=== PATIENT | female | born 1980 | race Caucasian/White ===

== ENCOUNTER 2020-04-26 15:56 | Emergency (ER) | payer OTHER ==
[~2020-04-26] VITALS: Ht 182.9 cm; Wt 68.0 kg
--- NOTE | 2020-04-26 17:12 | NUR ---
attendant honor bar: pt from lobby to room 28
--- NOTE | 2020-04-26 17:23 | NUR ---
THIS IS A 39 YO F W/ C/O VB AND LWR ABD PAIN X2 WEEKS. PT REPORTS HX OF CERVICAL CA AND ENDOMETRIOSIS. PT AMBULATED TO THE BR W/ A STEADY GAIT. PROVIDED URINE CUP FOR SAMPLE AND EDUCATED ON CLEAN CATH. RETURNED TO ROOM W/O INCIDENT. RESP EVEN AND UNLABORED, NADN. REPORT TO SYEDA MODI.
--- NOTE | 2020-04-26 17:28 | NUR ---
report recived, pt in room, vss
[2020-04-26 17:47] LABS: ALANINE AMINOTRANSFERASE 18 U/L (12-78); ALBUMIN 4.5 g/dL (3.4-5.0); ANION GAP 5 mmol/L (5-15); CALCIUM 9.2 mg/dL (8.5-10.1); CHLORIDE 108 mmol/L (98-107); CREATININE 0.94 mg/dL (0.55-1.02)
[2020-04-26 17:51] LABS: ALKALINE PHOSPHATASE 67 U/L (45-117); BILIRUBIN,TOTAL 0.8 mg/dL (0.2-1.0); TOTAL PROTEIN 8.3 g/dL (6.4-8.2)
[2020-04-26] MEDS ORDERED: SODIUM CHLORIDE FLUSH 10ML SYR IVF ONE (18:00)
[2020-04-26 18:19] LABS: BASOPHILS % (AUTO) 1 % (0-1); EOSINOPHILS % (AUTO) 1 % (1-7); LYMPHOCYTES % (AUTO) 20 % (22-44); MEAN CORPUSCULAR HEMOGLOBIN 31.1 pg (27.0-34.8); MEAN CORPUSCULAR HGB CONC 34.2 g/dL (32.4-35.8); MEAN PLATELET VOLUME 9.2 fL (7.4-10.4); MONOCYTES % (AUTO) 5 % (2-9); NEUTROPHILS % (AUTO) 72 % (42-75); PLATELET COUNT 277 x10^3/uL (130-400); RED BLOOD COUNT 4.84 x10^6/uL (3.82-5.3); RED CELL DISTRIBUTION WIDTH 12.9 % (9.6-15.2)
[2020-04-26 18:23] LABS: MD NO
[2020-04-26 18:33] VITALS: BP 116/62
--- NOTE | 2020-04-26 18:34 | NUR ---
PT BACK FROM US.
[2020-04-26] MEDS ORDERED: HYDROcodone/APAP 10/325 MG TABLET PO ONE (19:00)
[2020-04-26] MEDS ORDERED: HYDROcodone/APAP 10/325 MG TABLET ONE (19:14)
--- NOTE | 2020-04-26 19:26 | NUR ---
pt walked out self with steady gait, vss, freind at bed side driving her home. if s&s worsen return to er
== END 2020-04-26 19:36 | disposition home or self-care (01) ==
LOC: ED 17:00
DX: N83.292 Other ovarian cyst, left side (principal); N93.9 Abnormal uterine and vaginal bleeding, unspecified; K59.00 Constipation, unspecified; R50.9 Fever, unspecified; R11.10 Vomiting, unspecified; F17.200 Nicotine dependence, unspecified, uncomplicated; Z88.0 Allergy status to penicillin
CPT/HCPCS: 36415; 76830; 80053; 84703; 85025; 99284